=== PATIENT | male | born 2000 | race Caucasian/White ===

== ENCOUNTER 2023-07-18 16:54 | Emergency (ER) | payer SELFPAY ==
[2023-07-18 17:17] VITALS: BP 150/89; PULSE 116; RESP 18; TEMP 38.7; O2SAT 98; BMI 34.3
--- NOTE | 2023-07-18 18:09 | ED.URI1 ---
Documented by User: Xavier Marvin MD 07/19/23 19:41 HPI - URI/Sore Throat General Chief Complaint: Upper Respiratory Infection Stated Complaint: COUGH, DIZINESS Time Seen by Provider: 07/18/23 18:02 Source: patient Limitations: no limitations History of Present Illness HPI Narrative: 23-year-old male presents for cough and congestion and body aches. He's been nauseous and has been sick for about four days. He is not vaccinated for Covid. Symptoms are continuous. Related Data Allergies Allergy/AdvReac Type Severity Reaction Status Date / Time No Known Drug Allergies Allergy Verified 07/18/23 17:16 Review of Systems ROS Narrative A ten point review of systems is negative except as noted above. Exam Narrative Exam Narrative: Nurses note and vital signs reviewed and patient is not hypoxic. General: The patient appears well and in no apparent distress. Patient is resting comfortably on cart. Skin: Warm, dry, no pallor noted. There is no rash noted. Head: Normocephalic, atraumatic Eye: Normal conjunctiva, no drainage Ears, Nose, Mouth, and Throat: oral mucosa is moist. Nares patent. Cardiovascular: Regular Rate and Rhythm Respiratory: Patient is in no distress, no accessory muscle use, lungs are clear to auscultation, no wheezing, rales or rhonchi Back: non-tender GI: soft and nontender Musculoskeletal: The patient has no evidence of calf tenderness, no pitting edema, symmetrical pulses noted bilaterally Neurological: A&O, normal speech Psychiatric: Cooperative Constitutional Vital Signs, click to edit/add: Last Vital Signs Temp 99.7 F 07/18/23 19:34 Pulse 89 07/18/23 19:34 Resp 16 07/18/23 19:34 BP 144/88 H 07/18/23 19:34 Pulse Ox 97 07/18/23 19:34 O2 Del Method Room Air 07/18/23 19:34 Course Vital Signs Vital signs: Vital Signs Temperature 101.7 F H 07/18/23 17:17 Pulse Rate 116 H 07/18/23 17:17 Respiratory Rate 18 07/18/23 17:17 Blood Pressure 150/89 H 07/18/23 17:17 Pulse Oximetry 98 07/18/23 17:17 Oxygen Delivery Method Room Air 07/18/23 17:17 Temperature 99.7 F 07/18/23 19:34 Pulse Rate 89 07/18/23 19:34 Respiratory Rate 16 07/18/23 19:34 Blood Pressure 144/88 H 07/18/23 19:34 Pulse Oximetry 97 07/18/23 19:34 Oxygen Delivery Method Room Air 07/18/23 19:34 MDM - URI/Sore Throat Lab Data Labs: Lab Results 07/18/23 Range/Units 17:21 SARS-CoV-2 (PCR) Negative (NEGATIVE) Influenza Type A Ag Positive A Influenza Type B Ag Negative SARS-CoV-2 RNA ([facility]) Not detected (NOT DETECTE) Discharge Plan Discharge Chief Complaint: Upper Respiratory Infection Clinical Impression: Influenza Patient Disposition: Home, Self-Care Time of Disposition Decision: 19:23 Condition: Good Mode of Transportation: Private Vehicle Instructions: Influenza (ED) Stand Alone Forms: Portal Instructions Referrals: Physician,Non-Staff, [Primary Care Provider] - 1 week Discharge Date/Time: 07/18/23 19:35 Documented by User: Macy Lackey MD 07/18/23 19:23 HPI - URI/Sore Throat General Chief Complaint: Upper Respiratory Infection Stated Complaint: COUGH, DIZINESS Time Seen by Provider: 07/18/23 18:02 Related Data Allergies Allergy/AdvReac Type Severity Reaction Status Date / Time No Known Drug Allergies Allergy Verified 07/18/23 17:16 Exam Constitutional Vital Signs, click to edit/add: Last Vital Signs Temp 99.7 F 07/18/23 19:34 Pulse 89 07/18/23 19:34 Resp 16 07/18/23 19:34 BP 144/88 H 07/18/23 19:34 Pulse Ox 97 07/18/23 19:34 O2 Del Method Room Air 07/18/23 19:34 Course Vital Signs Vital signs: Vital Signs Temperature 101.7 F H 07/18/23 17:17 Pulse Rate 116 H 07/18/23 17:17 Respiratory Rate 18 07/18/23 17:17 Blood Pressure 150/89 H 07/18/23 17:17 Pulse Oximetry 98 07/18/23 17:17 Oxygen Delivery Method Room Air 07/18/23 17:17 Temperature 99.7 F 07/18/23 19:34 Pulse Rate 89 07/18/23 19:34 Respiratory Rate 16 07/18/23 19:34 Blood Pressure 144/88 H 07/18/23 19:34 Pulse Oximetry 97 07/18/23 19:34 Oxygen Delivery Method Room Air 07/18/23 19:34 MDM - URI/Sore Throat MDM Narrative Medical decision making narrative: This 23-year-old male was signed out to me at shift change pending Covid, influenza testing. He presents for evaluation of fever, cough congestion and body aches since Saturday, 3 days ago. He was seen and examined. He states he was freezing when he came in but after Tylenol and Motrin is now sweating. He is somewhat feeling better. He is positive for influenza A. He denies any vomiting or diarrhea. He is in agreement with a prescription for Tamiflu and a note for work. He is tolerating fluids without difficulty. He was encouraged to rest, drink plenty of fluids and use Tylenol and Motrin as needed for fever and pain Lab Data Labs: Lab Results 07/18/23 Range/Units 17:21 SARS-CoV-2 (PCR) Negative (NEGATIVE) Influenza Type A Ag Positive A Influenza Type B Ag Negative SARS-CoV-2 RNA ([facility]) Not detected (NOT DETECTE) Discharge Plan Discharge Chief Complaint: Upper Respiratory Infection Clinical Impression: Influenza Patient Disposition: Home, Self-Care Time of Disposition Decision: 19:23 Condition: Good Mode of Transportation: Private Vehicle Instructions: Influenza (ED) Stand Alone Forms: Portal Instructions Referrals: Physician,Non-Staff, MD [Primary Care Provider] - 1 week Discharge Date/Time: 07/18/23 19:35
[2023-07-18] MEDS: ACETAMINOPHEN 325 MG TABLET 650 MG PO (18:30)
[2023-07-18] MEDS: IBUPROFEN 400 MG TABLET 800 MG PO (18:30)
[2023-07-18] MEDS: ONDANSETRON 4 MG RAPDIS TABLET SL (18:30)
[2023-07-18 18:58] VITALS: TEMP 38.7
[2023-07-18 19:11] LABS: Influenza Virus A Antigen Positive; Influenza Virus B Antigen Negative; Internal Control Within Normal Limits; SARS-CoV-2 Ag NEGATIVE (NEGATIVE)
[2023-07-18 19:34] VITALS: BP 144/88; PULSE 89; RESP 16; TEMP 37.6; O2SAT 97
[2023-07-19 15:34] LABS: SARS-CoV-2 NAA NOT DETECTED (NOT DETECTE)
== END 2023-07-18 19:35 | disposition home or self-care (01) ==
PROVIDERS: Emergency Medicine; Emergency Provider Emergency Medicine
DX: J10.1 Influenza due to other identified influenza virus with other respiratory manifestations (principal); Z20.822 Contact with and (suspected) exposure to COVID-19; Z28.310 Unvaccinated for COVID-19
CPT/HCPCS: 87635; 87804; 87811; 99284; Q0162